=== PATIENT | female | born 1960 | race Caucasian/White ===

== ENCOUNTER 2020-02-16 11:59 | Emergency (ER) | payer OTHER ==
[2020-02-16 12:06] VITALS: BP 124/88; PULSE 93; TEMP 98.7; BMI 32.0
== END 2020-02-16 12:40 | disposition home or self-care (01) ==
LOC: FER 11:59
DX: S29.012A Strain of muscle and tendon of back wall of thorax, initial encounter (principal); S16.1XXA Strain of muscle, fascia and tendon at neck level, initial encounter; V87.7XXA Person injured in collision between other specified motor vehicles (traffic), initial encounter
CPT/HCPCS: 99283-25